=== PATIENT | female | born 1930 | race Caucasian/White ===

== ENCOUNTER → 2016-07-20 | Outpatient (CLI) | payer MEDICARE, BC ==
[~2016-07-20] MED LIST: ATOR20TA42 PO; CELE100; LATA.005%O OU; TAB-TAB PO
[2016-07-20 09:41] LABS: HEMATOCRIT 38.7 % (35.0-46.0); MEAN CELL VOLUME 90.8 FL (80.0-100.0); MEAN CORPUSCULAR HEMOGLOBIN 31.1 PG (27.0-34.0); MEAN CORPUSCULAR HGB CONC 34.2 % (32.0-36.0); PLATELET COUNT 205 TH/MM3 (150-450); RED BLOOD COUNT 4.27 MIL/MM3 (4.00-5.30); RED CELL DISTRIBUTION WIDTH 14.2 % (11.6-17.2); REVIEW FLAG FINAL; WHITE BLOOD COUNT 4.6 TH/MM3 (4.0-11.0)
[2016-07-20 09:54] LABS: ALKALINE PHOSPHATASE 96 U/L (45-117); ALT (GPT) 32 U/L (10-53); ANION GAP 6 MEQ/L (5-15); AST (GOT) 18 U/L (15-37); BICARBONATE 29.7 MEQ/L (21.0-32.0); BLOOD UREA NITROGEN 21 MG/DL (7-18); CHLORIDE 110 MEQ/L (98-107); GLOMERULAR FILTRATION RATE 72 ML/MIN (>89); GLUCOSE,FASTING 82 MG/DL (74-99); HDL CHOLESTEROL 54.7 MG/DL (40.0-60.0); LDL CHOLESTEROL 68 MG/DL (0-99); SODIUM (NA) 146 MEQ/L (136-145); TOTAL BILIRUBIN ADULT 0.4 MG/DL (0.2-1.0)
== END ==
LOC: CLAB 08:59
PROVIDERS: ATTEND Family Medicine
DX: E78.5 Hyperlipidemia, unspecified (principal); M19.011 Primary osteoarthritis, right shoulder; I10 Essential (primary) hypertension; Z86.79 Personal history of other diseases of the circulatory system
CPT/HCPCS: 36415; 80053; 80061; 84443; 85027

== ENCOUNTER → 2016-12-08 | Outpatient (CLI) | payer MEDICARE, BC ==
[~2016-12-08] MED LIST changes: +ASPI81CH CHEW; +ATOR20TA15 PO; +FAMO1TAB37 PO; +LATA0.002 EACH EYE; +MEDR4PAK PO; +MELO-1 PO; +MULTTAB67 PO; +PRED50 PO
[2016-12-08 10:31] LABS: ANION GAP 6 MEQ/L (5-15); AST (GOT) 27 U/L (15-37); BLOOD UREA NITROGEN 23 MG/DL (7-18); CHLORIDE 110 MEQ/L (98-107); GLOMERULAR FILTRATION RATE 73 ML/MIN (>89); GLUCOSE,FASTING 76 MG/DL (74-99); POTASSIUM 3.7 MEQ/L (3.5-5.1); SODIUM (NA) 143 MEQ/L (136-145)
[2016-12-08 10:32] LABS: ALT (GPT) 34 U/L (10-53)
[2016-12-08 10:40] LABS: HEMATOCRIT 39.5 % (35.0-46.0); MEAN CELL VOLUME 91.5 FL (80.0-100.0); MEAN CORPUSCULAR HEMOGLOBIN 30.9 PG (27.0-34.0); MEAN CORPUSCULAR HGB CONC 33.7 % (32.0-36.0); PLATELET COUNT 164 TH/MM3 (150-450); RED BLOOD COUNT 4.31 MIL/MM3 (4.00-5.30); RED CELL DISTRIBUTION WIDTH 15.1 % (11.6-17.2); REVIEW FLAG FINAL; WHITE BLOOD COUNT 3.9 TH/MM3 (4.0-11.0)
[2016-12-08 10:42] LABS: ALKALINE PHOSPHATASE 95 U/L (45-117); HDL CHOLESTEROL 54.4 MG/DL (40.0-60.0); LDL CHOLESTEROL 87 MG/DL (0-99); TOTAL BILIRUBIN ADULT 0.6 MG/DL (0.2-1.0)
== END ==
LOC: CLAB 09:02
PROVIDERS: ATTEND Family Medicine
DX: I10 Essential (primary) hypertension (principal); E78.5 Hyperlipidemia, unspecified; M19.011 Primary osteoarthritis, right shoulder; M17.11 Unilateral primary osteoarthritis, right knee; Z68.28 Body mass index [BMI] 28.0-28.9, adult; Z86.79 Personal history of other diseases of the circulatory system
CPT/HCPCS: 36415; 80053; 80061; 84443; 85027

== ENCOUNTER 2017-01-18 12:34 | Emergency (ER) | payer MEDICARE, BC ==
[~2017-01-18] VITALS: Ht 165.1 cm; Wt 78.0 kg
[~2017-01-18 12:34] MED LIST changes: -ASPI81CH CHEW; -ATOR20TA15 PO; -FAMO1TAB37 PO; -LATA0.002 EACH EYE; -MEDR4PAK PO; -MELO-1 PO; -MULTTAB67 PO; -PRED50 PO
[2017-01-18 12:37] VITALS: BP 199/92; PULSE 79; RESP 16; TEMP 98.9; O2SAT 97
[2017-01-18] MEDS ORDERED: MELO-1 PO (12:44)
[2017-01-18] MEDS ORDERED: ASPI81CH CHEW (12:44)
[2017-01-18] MEDS ORDERED: LATA0.002 EACH EYE (12:45)
[2017-01-18] MEDS ORDERED: ATOR20TA15 PO (12:45)
[2017-01-18] MEDS ORDERED: MULTTAB67 PO (12:45)
--- NOTE | 2017-01-18 12:53 | PD ---
HPI Chief Complaint: Edema Time Seen by Provider: 12:46 Travel History International Travel<30 days: No Contact w/Intl Traveler<30days: No Traveled to known affect area: No History of Present Illness HPI Patient comes in complaining of tongue swelling that began approximately 2 hours ago after eating her lunch. Patient reports that she ate the same stuff yesterday and had no problems. Patient reports she had similar issue in October and she went to her primary care doctor's office who gave her shot of Decadron monitored for about 4 hours and send her home. Patient states that she has an EpiPen but did not take it because of the way it makes her feel. Patient denies any difficulty breathing or known new allergen exposures. Patient reports she did have allergy testing previously and was found to be not allergic to all the food that she ate today. Patient reports that she took a Benadryl prior to coming emergency department seems to help some. Patient states this isn't as bad as previous episode. Denies anything making it worse. PFSH Past Medical History Arthritis: Yes Cancer: No High Cholesterol: Yes Diabetes: No Glaucoma: Yes Genitourinary: No Implanted Vascular Access Dvce: Yes Medical other: Yes (MACULAR DEGENERATION) Neurologic: Yes Psychiatric: No Reproductive: No Respiratory: No Thyroid Disease: No Influenza Vaccination: Yes Past Surgical History Abdominal Surgery: Yes (APPENDECTOMY) Appendectomy: Yes Body Medical Devices: PINS AND SCREWS IN LEFT ANKLE/FOOT Section: Yes Eye Surgery: Yes (BILATERAL CATARACT EXTRACTION WITH LENS IMPLANT) Gynecologic Surgery: Yes (3 C-SECTIONS, 1 D&C) Hysterectomy: Yes Pacemaker: No Social History Alcohol Use: No Tobacco Use: No Substance Use: No Allergies-Medications (Allergen,Severity, Reaction): Coded Allergies: No Known Allergies (Verified , 01/18/17) Reported Meds & Prescriptions Reported Meds & Active Scripts Active Pepcid (Famotidine) 20 Mg Tab 10 Mg PO BID 10 Days Medrol Dosepak (Methylprednisolone) 4 Mg Dspk 4 Mg PO DIRECTED Per Pharmacist direction Reported Latanoprost Opth Drops (Latanoprost) 0.005% Drops 1 Drop EACH EYE HS Refrigerate until opened. Multiple Vitamin 1 Tab 1 Tab PO DAILY Atorvastatin (Atorvastatin Calcium) 20 Mg Tab 20 Mg PO HS Aspirin 81 Mg Chew 81 Mg CHEW DAILY Meloxicam Unknown Strength Tab Unknown Dose PO DAILY Review of Systems Except as stated in HPI: all other systems reviewed are Neg Physical Exam Narrative GENERAL: Well-developed, overly nourished, in no acute distress, and non-ill appearing. SKIN: Focused skin assessment warm and dry. HEAD: Atraumatic. Normocephalic. EYES: Pupils equal and round. EOMI. No scleral icterus. No injection or drainage. ENT: No nasal bleeding or discharge. Mucous membranes pink and moist. Tongue edema noted. There is no stridor. Patient is not have any difficulty breathing. Is able speak in full sentences. NECK: Trachea midline. No cervical lymphadenopathy or stridor. Supple. No nuclear rigidity. CARDIOVASCULAR: Regular rate and rhythm. No murmur appreciated. RESPIRATORY: No accessory muscle use. No respiratory distress. Clear to auscultation. Breath sounds equal bilaterally. MUSCULOSKELETAL: No obvious deformities. No clubbing. No cyanosis. No edema. Full range of motion. NEUROLOGICAL: Awake and alert. No obvious cranial nerve deficits. Motor grossly within normal limits. Normal speech. PSYCHIATRIC: Appropriate mood and affect; insight and judgment normal. Data Data Last Documented VS Vital Signs Date Time Temp Pulse Resp B/P (MAP) Pulse Ox O2 Delivery O2 Flow Rate FiO2 01/18/17 15:49 01/18/17 14:40 18 98 Room Air 01/18/17 14:30 68 01/18/17 12:37 98.9 Orders Orders Ecg Monitoring (01/18/17 12:46) Iv Access Insert/Monitor (01/18/17 12:46) Oximetry (01/18/17 12:46) Diphenhydramine Inj (Benadryl Inj) (01/18/17 13:00) Famotidine Inj (Pepcid Inj) (01/18/17 13:00) Sodium Chloride 0.9% Flush (Ns Flush) (01/18/17 13:00) Dexamethasone Inj (Decadron Inj) (01/18/17 13:00) MDM Medical Decision Making Medical Screen Exam Complete: Yes Emergency Medical Condition: Yes Differential Diagnosis Angioedema, allergic reaction, acute respiratory distress, other Narrative Course Patient was seen and examined. IV was established. Patient is placed on continuous cardiac monitoring. Patient was given IV Decadron, Benadryl, and Pepcid. 1330 patient reassessed reports slight improvement since receiving medications prescribed 20 minutes ago. Denies any difficulty breathing. Patient continues to speak in full sentences. Appears allergic reaction. There is some minimal angioedema involving the tongue. The airway is patent and intact and does not appear involved. The patient denies any difficulty breathing. The patient is tolerating water without any difficulty. The symptoms are not worsening and appear stable. The patient looks great, the findings are minimal and due to nonprogressing of symptoms here and loading of antihistamine and steroid medications in the ED, the patient is safe to discharge home. The patient feels comfortable with plan and will return immediately if symptoms begin to worsen. The patient is to continue histamine 1 and 2 blockade as well as steroids. The patient was instructed to avoid potential precipitating factor and to follow up with their regular physician and or follow up with tower air traffic control specialist for definitive allergy testing. The patient agrees with plan. Patient in no obvious distress upon re-evaluation. Patient reports she is feeling better and is wanting to leave. Discussed patient with Dr. Rodríguez prior to discharge, who is in agreement with plan of care and disposition. Patient was asked if they wanted to speak to my attending, which the patient did not wish to do at this time. Any questions/concerns in reference to patient diagnosis/condition discussed and clarified prior to patient's discharge. Reinforced sheer importance of close follow up with patient's primary physician or primary care clinic. Instructed patient to return to ED immediately, if symptoms return/worsen. Patient showed understanding of above instructions. Further instructions and recommendations were detailed in discharge paperwork. Patient ambulated without difficulty out of ED at discharge. Diagnosis Primary Impression: Allergic reaction Qualified Codes: T78.40XA - Allergy, unspecified, initial encounter Patient Instructions: Angioedema (ED), General Allergic Reaction (ED), General Instructions Additional Instructions: Follow-up with your primary care physician in 3-5 days for reevaluation and possible re-allergy testing. Take all medication as prescribed. Do not take meloxicam while taking steroids. Use [id number] [place] drill or Claritin or Zyrtec for symptomatic relief. Follow instructions on the packaging. Return to the emergency department if symptoms get worse. Med/Other Pt SpecificInfo: Prescription(s) given Scripts Famotidine (Pepcid) 20 Mg Tab 10 MG PO BID for 10 Days, #10 TAB 0 Refills Prov: Kem Rodríguez MD 01/18/17 Methylprednisolone Dosepak (Medrol Dosepak) 4 Mg Dspk 4 MG PO DIRECTED, #1 DSPK 0 Refills Per Pharmacist direction Prov: Kem Rodríguez MD 01/18/17 Disposition: 01 DISCHARGE HOME Condition: Stable Darryl Solis Jan 18, 2017 12:52
[2017-01-18] MEDS ORDERED: DEXAMETHASONE SOD PHOS 20 MG/5 ML VIAL IV PUSH ONE (13:00)
[2017-01-18] MEDS ORDERED: FAMOTIDINE 20 MG/2 ML VIAL IV PUSH ONE (13:00)
[2017-01-18] MEDS ORDERED: SODIUM CHLORIDE 0.9% FLUSH 10 ML FLUSH IV FLUSH PRN (13:00)
[2017-01-18] MEDS ORDERED: diphenhydrAMINE HCL 50 MG/ML VIAL IVP ONE (13:00)
[2017-01-18 14:30] VITALS: BP 200/92; PULSE 68; RESP 16; O2SAT 100
[2017-01-18 14:40] VITALS: RESP 18; O2SAT 98
[2017-01-18] MEDS ORDERED: MEDR4PAK PO (15:13)
[2017-01-18] MEDS ORDERED: FAMO1TAB37 PO (15:13)
== END 2017-01-18 15:50 | disposition home or self-care (01) ==
LOC: NEPE 12:34
DX: T78.3XXA Angioneurotic edema, initial encounter (principal); T78.40XA Allergy, unspecified, initial encounter; E78.00 Pure hypercholesterolemia, unspecified; Z87.39 Personal history of other diseases of the musculoskeletal system and connective tissue; Z86.69 Personal history of other diseases of the nervous system and sense organs
CPT/HCPCS: 96374; 96375; 99284; J1100; J1200

== ENCOUNTER 2017-01-29 19:04 | Emergency (ER) | payer MEDICARE, BC ==
[~2017-01-29 19:04] MED LIST changes: +ASPI81CH CHEW; +ATOR20TA15 PO; -ATOR20TA42 PO; -CELE100; +FAMO1TAB37 PO; -LATA.005%O OU; +LATA0.002 EACH EYE; +MEDR4PAK PO; +MELO-1 PO; +MULTTAB67 PO; -TAB-TAB PO
[2017-01-29 19:06] VITALS: BP 200/90; PULSE 76; RESP 16; TEMP 99; O2SAT 95
[2017-01-29 19:34] VITALS: RESP 18
--- NOTE | 2017-01-29 21:07 | PD ---
HPI Chief Complaint: Allergic/Adverse Reaction Time Seen by Provider: 20:56 Travel History International Travel<30 days: No Contact w/Intl Traveler<30days: No Traveled to known affect area: No History of Present Illness HPI 87-year-old female here for evaluation of possible allergic reaction. The patient is here for left upper lip swelling that started at around 6:00 PM. She took a Benadryl and reports that her symptoms have slightly improved. She denies Tylenol swelling or throat swelling. No respiratory difficulties or difficulty with swallowing. The patient had tongue swelling in October of this year. She had another episode of tongue swelling on January 18 and was seen in the emergency department at that time. She was seen by an cash specialist and felt that her tongue swelling might of been secondary to the meloxicam that she has been on for chronic back pain, so this was discontinued. She was started on Celebrex. She is not on any HECTOR inhibitor. No rash. No nausea or vomiting. PFSH Past Medical History Arthritis: Yes Cancer: No High Cholesterol: Yes Diabetes: No Glaucoma: Yes Genitourinary: No Implanted Vascular Access Dvce: Yes Neurologic: Yes Psychiatric: No Reproductive: No Respiratory: No Thyroid Disease: No ?: Not Past Surgical History Abdominal Surgery: Yes (APPENDECTOMY) Appendectomy: Yes Body Medical Devices: PINS AND SCREWS IN LEFT ANKLE/FOOT Section: Yes Eye Surgery: Yes (BILATERAL CATARACT EXTRACTION WITH LENS IMPLANT) Gynecologic Surgery: Yes (3 C-SECTIONS, 1 D&C) Hysterectomy: Yes Pacemaker: No Social History Alcohol Use: No Tobacco Use: No Substance Use: No Allergies-Medications (Allergen,Severity, Reaction): Coded Allergies: No Known Allergies (Verified , 01/29/17) Reported Meds & Prescriptions Reported Meds & Active Scripts Active Reported Latanoprost Opth Drops (Latanoprost) 0.005% Drops 1 Drop EACH EYE HS Refrigerate until opened. Multiple Vitamin 1 Tab 1 Tab PO DAILY Atorvastatin (Atorvastatin Calcium) 20 Mg Tab 20 Mg PO HS Aspirin 81 Mg Chew 81 Mg CHEW DAILY Review of Systems Except as stated in HPI: all other systems reviewed are Neg Physical Exam Narrative GENERAL: Well-developed, well-nourished, awake, alert, GCS 15, pleasant, no apparent distress. SKIN: Focused skin assessment warm/dry. Rash. HEAD: Atraumatic. Normocephalic. EYES: Pupils equal and round. No scleral icterus. No injection or drainage. ENT: Mucous membranes pink and moist. Moderate left upper and left lower lip swelling. No tongue swelling. No drooling or stridor. NECK: Trachea midline. No JVD. CARDIOVASCULAR: Regular rate and rhythm. RESPIRATORY: No accessory muscle use. Clear to auscultation. Breath sounds equal bilaterally. MUSCULOSKELETAL: No obvious deformities. No clubbing. No cyanosis. No edema. NEUROLOGICAL: Awake and alert. No obvious cranial nerve deficits. Motor grossly within normal limits. Normal speech. No focal deficits. PSYCHIATRIC: Appropriate mood and affect; insight and judgment normal. Data Data Last Documented VS Vital Signs Date Time Temp Pulse Resp B/P (MAP) Pulse Ox O2 Delivery O2 Flow Rate FiO2 01/29/17 19:34 18 01/29/17 19:06 99.0 76 200/90 (126) 95 Room Air Orders Orders Methylprednisolone So Succ Inj (Solumedr (01/29/17 21:15) Famotidine Inj (Pepcid Inj) (01/29/17 21:15) MDM Medical Decision Making Medical Screen Exam Complete: Yes Emergency Medical Condition: Yes Medical Record Reviewed: Yes Differential Diagnosis Angioedema, allergic reaction Narrative Course Initial vital signs show heart rate 76, blood pressure 200/90, pulse ox 95% on room air, oral temp of 99F. Repeat blood pressure is 191/93 without any intervention. Chart review shows that the patient has had elevated blood pressure readings while in the emergency Department in the past. The patient is not displaying any signs or symptoms of hypertensive crisis. The patient was given a dose of IV Solu-Medrol and IV Pepcid. She has already taken a dose of Benadryl at home. She was watched in the emergency department for a couple hours with resolution and lower lip swelling and significant improvement in upper left lip swelling. She has no tongue swelling. No drooling or stridor. She feels well and would like to be discharged home. I believe she has angioedema and this is likely secondary to her Celebrex. She was advised to discontinue this medication. She will be discharged home with a short course of prednisone. She has a follow-up appointment with her primary care physician in 2 days. She was informed on when to return to the emergency department. She verbalizes understanding and agreement with plan. Diagnosis Primary Impression: Angioedema Qualified Codes: T78.3XXA - Angioneurotic edema, initial encounter Referrals: Daisy Seymour Jr., MD 2 days Additional Instructions: Follow-up with your primary care physician as scheduled in 2 days. Discontinue celecoxib. Return to the emergency department for worsening symptoms or any other concerns. Scripts Prednisone (Prednisone) 50 Mg Tab 50 MG PO DAILY for 5 Days, #5 TAB 0 Refills Prov: Shahriar Valdez MD 01/29/17 Disposition: 01 DISCHARGE HOME Condition: Stable Shahriar Valdez MD Jan 29, 2017 21:07
[2017-01-29] MEDS ORDERED: FAMOTIDINE 20 MG/2 ML VIAL IV PUSH ONE (21:15)
[2017-01-29] MEDS ORDERED: methylPREDNISolone SOD SUCC 125 MG/2 ML VIAL IV PUSH ONE (21:15)
[2017-01-29] MEDS ORDERED: PRED50 PO (22:38)
== END 2017-01-29 22:52 | disposition home or self-care (01) ==
LOC: NEPD 19:04
DX: T78.3XXA Angioneurotic edema, initial encounter (principal); E78.00 Pure hypercholesterolemia, unspecified; Z87.39 Personal history of other diseases of the musculoskeletal system and connective tissue; Z86.69 Personal history of other diseases of the nervous system and sense organs
CPT/HCPCS: 96374; 96375; 99284; J2930

== ENCOUNTER → 2017-03-09 | Outpatient (CLI) | payer MEDICARE, BC ==
[~2017-03-09] MED LIST changes: +ASPI-516 CHEW; -ASPI81CH CHEW; -FAMO1TAB37 PO; -MEDR4PAK PO; -MELO-1 PO; +PRED50 PO
[2017-03-09 09:28] LABS: HEMATOCRIT 41.2 % (35.0-46.0); MEAN CELL VOLUME 88.9 FL (80.0-100.0); MEAN CORPUSCULAR HEMOGLOBIN 29.3 PG (27.0-34.0); PLATELET COUNT 221 TH/MM3 (150-450); RED BLOOD COUNT 4.63 MIL/MM3 (4.00-5.30); RED CELL DISTRIBUTION WIDTH 14.3 % (11.6-17.2); REVIEW FLAG FINAL; WHITE BLOOD COUNT 5.1 TH/MM3 (4.0-11.0)
[2017-03-09 09:59] LABS: ALT (GPT) 44 U/L (10-53); ANION GAP 8 MEQ/L (5-15); AST (GOT) 31 U/L (15-37); BICARBONATE 27.7 MEQ/L (21.0-32.0); BLOOD UREA NITROGEN 16 MG/DL (7-18); CHLORIDE 109 MEQ/L (98-107); GLOMERULAR FILTRATION RATE 71 ML/MIN (>89); GLUCOSE,FASTING 83 MG/DL (74-99); POTASSIUM 4.3 MEQ/L (3.5-5.1); SODIUM (NA) 145 MEQ/L (136-145)
[2017-03-09 10:08] LABS: ALKALINE PHOSPHATASE 125 U/L (45-117); HDL CHOLESTEROL 59.9 MG/DL (40.0-60.0); LDL CHOLESTEROL 73 MG/DL (0-99); TOTAL BILIRUBIN ADULT 0.5 MG/DL (0.2-1.0)
== END ==
LOC: CLAB 09:07
PROVIDERS: ATTEND Family Medicine
DX: I10 Essential (primary) hypertension (principal); E78.5 Hyperlipidemia, unspecified; M19.011 Primary osteoarthritis, right shoulder; M17.11 Unilateral primary osteoarthritis, right knee; Z86.79 Personal history of other diseases of the circulatory system
CPT/HCPCS: 36415; 80053; 80061; 84443; 85027

== ENCOUNTER → 2017-07-24 | Outpatient (CLI) | payer MEDICARE, BC | LOC: CLAB 09:52 | PROVIDERS: ATTEND Family Medicine | DX: R19.7 Diarrhea, unspecified (principal) | CPT/HCPCS: 87328; 87329; 87493; 87506 ==

== ENCOUNTER → 2017-07-27 | Outpatient (CLI) | payer MEDICARE, BC ==
[2017-07-27 08:45] LABS: HEMATOCRIT 40.6 % (35.0-46.0); HEMOGLOBIN 13.7 GM/DL (11.6-15.3); MEAN CORPUSCULAR HEMOGLOBIN 29.2 PG (27.0-34.0); MEAN CORPUSCULAR HGB CONC 33.6 % (32.0-36.0); MEAN PLATELET VOLUME 8.7 FL (7.0-11.0); PLATELET COUNT 208 TH/MM3 (150-450); RED BLOOD COUNT 4.67 MIL/MM3 (4.00-5.30); RED CELL DISTRIBUTION WIDTH 13.9 % (11.6-17.2); WHITE BLOOD COUNT 5.1 TH/MM3 (4.0-11.0)
[2017-07-27 09:29] LABS: ALBUMIN 3.3 GM/DL (3.4-5.0); AST (GOT) 26 U/L (15-37); BICARBONATE 27.6 MEQ/L (21.0-32.0); BLOOD UREA NITROGEN 10 MG/DL (7-18); CALCIUM 8.8 MG/DL (8.5-10.1); CHLORIDE 108 MEQ/L (98-107); CREATININE 0.71 MG/DL (0.50-1.00); GLOMERULAR FILTRATION RATE 78 ML/MIN (>89); GLUCOSE,FASTING 82 MG/DL (74-99); SODIUM (NA) 142 MEQ/L (136-145)
[2017-07-27 09:31] LABS: ALT (GPT) 26 U/L (10-53); CHOLESTEROL 145 MG/DL (120-200)
[2017-07-27 09:41] LABS: ALKALINE PHOSPHATASE 133 U/L (45-117); CHOLESTEROL/ HDL RATIO 3.36 RATIO; HDL CHOLESTEROL 43.1 MG/DL (40.0-60.0); LDL CHOLESTEROL 76 MG/DL (0-99); TOTAL BILIRUBIN ADULT 0.5 MG/DL (0.2-1.0); TOTAL PROTEIN 6.8 GM/DL (6.4-8.2); TRIGLYCERIDES 130 MG/DL (42-150)
== END ==
LOC: CLAB 08:12
PROVIDERS: ATTEND Family Medicine
DX: R19.7 Diarrhea, unspecified (principal); I10 Essential (primary) hypertension; E78.5 Hyperlipidemia, unspecified; M19.011 Primary osteoarthritis, right shoulder; M17.11 Unilateral primary osteoarthritis, right knee; Z86.79 Personal history of other diseases of the circulatory system; Z68.28 Body mass index [BMI] 28.0-28.9, adult
CPT/HCPCS: 36415; 80053; 80061; 84443; 85027; 87328; 87329